=== PATIENT | female | born 1925 | race Caucasian/White ===

== ENCOUNTER 2016-08-05 19:23 | Observation (INO) | payer MEDICARE, OTHER ==
[~2016-08-05 19:23] MED LIST: ALBU17I INH; AMLO5TAB22 PO; CENTTAB9; DYAZ37.52 PO; EZET10; LEVO.025 PO; LOSA25 PO; METO50TA PO; PRED10PA PO; VITA400C28; VITA500T10; Z.0.OXYGEN INH
[2016-08-05 19:29] VITALS: BP 122/61; PULSE 138; RESP 22; TEMP 98.2; O2SAT 91
--- NOTE | 2016-08-05 19:36 | PD ---
Physical Exam Time Seen by Provider: 19:33 Narrative 89yo F c/o having feelings of "fading out." Reports sore throat and SOB. Denies chest pain, fever. Patient seen in triage. VS reviewed. Patient taken to medical bed. Data Data Last Documented VS Vital Signs Date Time Temp Pulse Resp B/P Pulse Ox O2 Delivery O2 Flow Rate FiO2 08/05/16 19:29 98.2 138 22 122/61 91 Room Air MDM Supervised Visit with VALERIA: Yoko Duvall Aug 05, 2016 19:36
[2016-08-05] MEDS ORDERED: LOSA50TA PO (19:54)
[2016-08-05] MEDS ORDERED: HYDR25TA5 PO (19:54)
[2016-08-05] MEDS ORDERED: METO50TA PO (19:54)
[2016-08-05] MEDS ORDERED: AMLO5TAB2 PO (19:54)
[2016-08-05] MEDS ORDERED: ALBU0.63 NEB (19:54)
[2016-08-05] MEDS ORDERED: RESP: ALBUTEROL 2.5 MG/IPRATROPIUM 0.5 MG NEB (SCH) INH (20:00)
[2016-08-05] MEDS ORDERED: methylPREDNISolone SOD SUCC 125 MG/2 ML VIAL IVP ONE (20:00)
[2016-08-05] MEDS ORDERED: SODIUM CHLORIDE 0.9% FLUSH 10 ML FLUSH IVF PRN (20:00)
--- NOTE | 2016-08-05 20:09 | PD ---
HPI Chief Complaint: Respiratory Symptoms Time Seen by Provider: 19:46 Travel History International Travel<30 days: No Contact w/Intl Traveler<30days: No Traveled to known affect area: No History of Present Illness HPI 89yo F with PMH of COPD on home O2 presents to the ED with c/o episodes of feeling like she is going to pass out today. States it happens after walking and gets better after sitting down. Pt denies any dizziness. Also with left sided chest pain 2-3 hours prior to arrival. States it was pressure like and associated with sob. Pt does not feel sob sitting down. States she has sob after walking a few blocks. +Cough. She currently denies any fever, n/v, abdominal pain, focal weakness or numbness. Denies any fall. Pt's clinical research manager is Dr. Cole and states she had normal echo a few weeks ago but has not had any stress test recently. Former smoker. 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) Cardiovascular Problems: Yes High Cholesterol: Yes Chemotherapy: Yes Endocrine: No Gastrointestinal Disorders: No Genitourinary: No Hypertension: Yes Immune Disorder: No Neurologic: No Psychiatric: No Respiratory: Yes (COPD) Radiation Therapy: No ?: Not Past Surgical History Abdominal Surgery: Yes Appendectomy: Yes (AGE 20S) Cardiac Surgery: Yes (cardiac cath ) Cholecystectomy: Yes Eye Surgery: Yes Gynecologic Surgery: Yes Hysterectomy: Yes Oral Surgery: Yes Tonsillectomy: Yes (AGE 17) Other Surgery: Yes (BILATERAL MASTOIDS TOTAL OF 5 SURGERIES) Social History Alcohol Use: Yes (OCCASIONAL/ 1 DRINK PER NIGHT BEFORE BED) Tobacco Use: No (QUIT 8 1/2 YEARS AGO) Substance Use: No Allergies-Medications (Allergen,Severity, Reaction): Coded Allergies: HMG-CoA Reductase Inhibitors (Verified Adverse Reaction, Unknown, 08/05/16) Reported Meds & Prescriptions Reported Meds & Active Scripts Active Reported Albuterol Neb (Albuterol Sulfate) 0.63 Mg/3 Ml Neb 0.63 Mg NEB Q6HR NEB PRN Amlodipine (Amlodipine Besylate) 5 Mg Tab 5 Mg PO BID Losartan (Losartan Potassium) 50 Mg Tab 50 Mg PO BID Metoprolol Tartrate 50 Mg Tab 50 Mg PO BID Hydrochlorothiazide 25 Mg Tab 25 Mg PO DAILY Review of Systems Except as stated in HPI: all other systems reviewed are Neg Physical Exam Narrative GENERAL: 89yo F not in distress. SKIN: Focused skin assessment warm/dry. HEAD: Atraumatic. Normocephalic. EYES: Pupils equal and round. No scleral icterus. No injection or drainage. ENT: Throat clear. Uvula midline. No erythema or exudate. NECK: Trachea midline. No JVD. CARDIOVASCULAR: Regular rate and rhythm. No murmur appreciated. RESPIRATORY: No accessory muscle use. Slight bibasilar crackles. Saturating at 98% on 2L NC and 95% on RA. GASTROINTESTINAL: Abdomen soft, non-tender, nondistended. MUSCULOSKELETAL: No obvious deformities. No clubbing. No cyanosis. +Bilateral lower ext edema. NEUROLOGICAL: Awake and alert. No obvious cranial nerve deficits. Motor grossly within normal limits. Normal speech. PSYCHIATRIC: Appropriate mood and affect; insight and judgment normal. Data Data Last Documented VS Vital Signs Date Time Temp Pulse Resp B/P Pulse Ox O2 Delivery O2 Flow Rate FiO2 08/05/16 21:56 98 Nasal Cannula 2 08/05/16 21:56 78 22 142/67 76 24 135/63 78 24 137/63 08/05/16 19:29 98.2 Orders Complete Blood Count With Diff (08/05/16 19:56) Basic Metabolic Panel (Bmp) (08/05/16 19:56) B-Type Natriuretic Peptide (08/05/16 19:56) Act Partial Throm Time (Ptt) (08/05/16 19:56) Prothrombin Time / Inr (Pt) (08/05/16 19:56) Ckmb (Isoenzyme) Profile (08/05/16 19:56) Troponin I (08/05/16 19:56) Iv Access Insert/Monitor (08/05/16 19:56) Ecg Monitoring (08/05/16 19:56) Oximetry (08/05/16 19:56) Oxygen Administration (08/05/16 19:56) Chest, Single Ap (08/05/16 19:56) Sodium Chloride 0.9% Flush (Ns Flush) (08/05/16 20:00) Methylprednisolone So Succ Inj (Solumedr (08/05/16 20:00) Albuterol-Ipratropium Neb (Duoneb Neb) (08/05/16 20:00) Orthostatic Vital Signs (08/05/16 21:24) Potassium Chloride (Kcl) (08/05/16 21:30) Urinalysis - C+S If Indicated (08/05/16 21:25) Electrocardiogram (08/05/16 19:42) Admit Order (Ed Use Only) (08/05/16 22:20) Activity Bed Rest With Brp (08/05/16 22:21) Vital Signs (Adult) Q4H (08/05/16 22:21) Cardiac Rhythm .As Directed (08/05/16 22:21) Notify Dr: Other .PRN (08/05/16 22:21) Notify Dr. Parameters (08/05/16:21) Resp Oxygen Nasal Cannula (08/05/16 ) Ckmb (Isoenzyme) Profile (08/05/16 22:21) Ckmb (Isoenzyme) Profile (08/06/16 01:21) Troponin I (08/05/16:21) Troponin I (08/06/16 01:21) Electrocardiogram (08/05/16 22:21) Electrocardiogram (08/06/16 01:21) ^ Obtain (08/05/16 22:21) Fig Washer / Telemetry GÉNESIS.Q8H (08/05/16 22:21) Labs Laboratory Tests Test 08/05/16 20:02 White Blood Count 11.0 TH/MM3 Red Blood Count 4.08 MIL/MM3 Hemoglobin 13.2 GM/DL Hematocrit 39.0 % Mean Corpuscular Volume 95.5 FL Mean Corpuscular Hemoglobin 32.4 PG Mean Corpuscular Hemoglobin 33.9 % Concent Red Cell Distribution Width 13.2 % Platelet Count 200 TH/MM3 Mean Platelet Volume 9.1 FL Neutrophils (%) (Auto) 75.2 % Lymphocytes (%) (Auto) 10.3 % Monocytes (%) (Auto) 13.9 % Eosinophils (%) (Auto) 0.3 % Basophils (%) (Auto) 0.3 % Neutrophils # (Auto) 8.3 TH/MM3 Lymphocytes # (Auto) 1.1 TH/MM3 Monocytes # (Auto) 1.5 TH/MM3 Eosinophils # (Auto) 0.0 TH/MM3 Basophils # (Auto) 0.0 TH/MM3 CBC Comment DIFF FINAL Differential Comment Prothrombin Time 10.5 SEC Prothromb Time International 1.0 RATIO Ratio Activated Partial 27.0 SEC Thromboplast Time Sodium Level 139 MEQ/L Potassium Level 3.2 MEQ/L Chloride Level 103 MEQ/L Carbon Dioxide Level 28.0 MEQ/L Anion Gap 8 MEQ/L Blood Urea Nitrogen 12 MG/DL Creatinine 1.24 MG/DL Estimat Glomerular Filtration 41 ML/MIN Rate Random Glucose 152 MG/DL Calcium Level 8.2 MG/DL Total Creatine Kinase 45 U/L Troponin I LESS THAN 0.02 NG/ML B-Type Natriuretic Peptide 313 PG/ML [facility] Medical Decision Making Medical Screen Exam Complete: Yes Emergency Medical Condition: Yes Interpretation(s) EKG: NSR 80bpm. PACs. Normal axis. Poor baseline. Differential Diagnosis CHF exacerbation vs. ACS vs. Pneumonia vs. aortic insufficiency Narrative Course 89yo F with c/o near syncope and chest pain. Pt states she has had recent US carotid and echo [address] Cole that is normal. Labs reviewed , no leukocytosis. Troponin negative. BNP 313. Creatinine mildly elevated at 1.24. K: 3.2, replaced orally. Orthostatic negative. CXR showed scarring with no acute cardiopulmonary disease. Pt has been ambulating in the ED without feeling like she is going to pass out and denies any dizziness or sob. Pt did have chest pain that is pressure like and concerning for ACS. First enzyme is negative but would admit to chest pain center for serial EKG and cardiac enzyme. Pt given aspirin 325mg PO. Diagnosis Primary Impression: Chest pain Qualified Code: R07.9 - Chest pain, unspecified type Admitting Information Admitting Physician Requests: Julissa Martino DO Aug 05, 2016 20:09
[2016-08-05 20:26] LABS: AUTOMATED NEUTROPHIL # 8.3 TH/MM3 (1.8-7.7); BASOPHIL % 0.3 % (0.0-2.0); EOSINOPHIL % 0.3 % (0.0-4.0); HEMO FLAGS DIFF FINAL; LYMPH % 10.3 % (9.0-44.0); LYMPHOCYTE # 1.1 TH/MM3 (1.0-4.8); MEAN CELL VOLUME 95.5 FL (80.0-100.0); MEAN CORPUSCULAR HEMOGLOBIN 32.4 PG (27.0-34.0); MEAN CORPUSCULAR HGB CONC 33.9 % (32.0-36.0); MONO % 13.9 % (0.0-8.0); NEUT % 75.2 % (16.0-70.0); PLATELET COUNT 200 TH/MM3 (150-450); RED BLOOD COUNT 4.08 MIL/MM3 (4.00-5.30); RED CELL DISTRIBUTION WIDTH 13.2 % (11.6-17.2)
[2016-08-05 20:29] LABS: PROTHROMBIN TIME - PATIENT 10.5 SEC (9.8-11.6)
--- NOTE | 2016-08-05 20:39 | RADRPT ---
EXAM DATE/TIME: 08/05/2016 20:20 [facility] COMPARISON: CHEST SINGLE AP, July 30, 2015, 5:33. INDICATIONS : Patient felt like she was going to pass out throughout the day. She has been short of breath and had a productive cough. MEDICAL HISTORY : None. SURGICAL HISTORY : Coronary artery stent. ENCOUNTER: Initial ACUITY: 1 day PAIN SCORE: 0/10 LOCATION: Bilateral chest FINDINGS: A single view of the chest demonstrates the lungs to be symmetrically aerated without evidence of mas s, infiltrate or effusion. There is mild stable scarring. The cardiomediastinal contours are unremark able. Osseous structures are intact. Mild atherosclerotic changes are again noted in the aorta. CONCLUSION: Scarring with no acute cardiopulmonary disease. There is no evidence of pneumonia. Chandana Lares MD on August 05, 2016 at 20:36 Board Certified Radiologist. This report was verified electronically.
[2016-08-05 20:47] LABS: ANION GAP 8 MEQ/L (5-15); BLOOD UREA NITROGEN 12 MG/DL (7-18); CHLORIDE 103 MEQ/L (98-107); GLOMERULAR FILTRATION RATE 41 ML/MIN (>89); POTASSIUM 3.2 MEQ/L (3.5-5.1); SODIUM (NA) 139 MEQ/L (136-145)
[2016-08-05 20:57] LABS: CREATINE KINASE 45 U/L (26-192)
[2016-08-05] MEDS ORDERED: POTASSIUM CHLORIDE 20 MEQ CONTROLLED RELEASE TAB PO ONE (21:30)
[2016-08-05 21:56] VITALS: BP_SYST 135; BP_SYST 137; BP_SYST 142; BP_DIAS 63; BP_DIAS 67; RESP 22; RESP 24
[2016-08-05 22:24] VITALS: O2SAT 98
[2016-08-05] MEDS ORDERED: ASPIRIN 325 MG TAB PO ONE (22:30)
[2016-08-05 22:50] VITALS: BP 134/68; PULSE 88; RESP 20; O2SAT 96
[2016-08-05 23:22] LABS: CREATINE KINASE 41 U/L (26-192)
[2016-08-06 00:46] VITALS: BP 139/64; PULSE 70; RESP 20; TEMP 98.1; O2SAT 97
[2016-08-06 04:03] LABS: CREATINE KINASE 41 U/L (26-192)
[2016-08-06 04:48] VITALS: BP 136/60; PULSE 63; RESP 20; TEMP 97.7; O2SAT 98
[2016-08-06 07:15] VITALS: PULSE 65
[2016-08-06 07:25] VITALS: BP 156/72; PULSE 68; RESP 17; TEMP 98.2; O2SAT 92
[2016-08-06] MEDS ORDERED: RESP: ALBUTEROL 2.5 MG/IPRATROPIUM 0.5 MG NEB (SCH) INH ONE (08:30)
[2016-08-06] MEDS ORDERED: RESP: ALBUTEROL 2.5 MG/IPRATROPIUM 0.5 MG NEB (PRN) INH (08:30)
[2016-08-06] MEDS ORDERED: methylPREDNISolone SOD SUCC 125 MG/2 ML VIAL IV PUSH ONE (08:30)
[2016-08-06 08:36] VITALS: O2SAT 97
[2016-08-06 08:42] VITALS: O2SAT 96
[2016-08-06] MEDS ORDERED: MEDR4PAK PO (09:43)
--- NOTE | 2016-08-06 09:44 | HHI.DCPOC ---
Discharge Care Plan Diagnosis: (1) COPD exacerbation (2) Chest pain (3) Hypertension (4) Hyperlipidemia Goals to Promote Your Health * To prevent worsening of your condition and complications * To maintain your health at the optimal level Directions to Meet Your Goals Take your medications as prescribed Follow your dietary instruction Follow activity as directed Keep your appointments as scheduled Take your immunizations and boosters as scheduled If your symptoms worsen call your PCP, if no PCP go to Urgent Care Center or Emergency Room Smoking is Dangerous to Your Health. Avoid second hand smoke Call the 24-hour hour crisis hotline for domestic abuse at Eleazar Donovan Aug 06, 2016 09:44
--- NOTE | 2016-08-06 11:33 | HHI.HP ---
[facility] Primary Care Physician Russ Del Real M.D. Chief Complaint Shortness of breath History of Present Illness This is an 89-year-old female that presents to ED with a complaint of feeling weak and short of breath. States she has history of COPD and uses oxygen at home. She states that yesterday she felt very weak as if she could have passed out. Denies syncope. She was short of breath which she also states that terribly uncommon but seemed be worse. She also had a tightness in her chest which she states she also gets at times. She follows Dr. Wallace for pulmonary issues and Dr. Mitchell for potential cardiac issues. She states she feels a lot better after getting medication in the emergency department. Upon reviewing records she was given IV Solu-Medrol and breathing treatments. 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 Review of Systems General: Patient denies fevers, chills recent, and recent travel HEENT: Patient denies headache, sore throat, difficulty swallowing. Cardiovascular: Has the chest discomfort as mentioned above. Denies sensation of heart beating rapidly or irregularly. No syncope. Denies diaphoresis. Respiratory: She is chronically short of breath however seem to be worse. Denies inspirational chest discomfort. Denies coughing wheezing or hemoptysis. GI: Patient denies nausea, vomiting, diarrhea, abdominal pain, bloody stools. Musculoskeletal: Patient denies joint pain or edema. Denies calf pain or edema. Neurovascular: Patient denies numbness, tingling, weakness in extremities. Denies headache. Endocrine: Denies polyuria and polydipsia. Hematologic: Denies easy bruising. Skin: Denies rash or itching. Past Family Social History Allergies: Coded Allergies: HMG-CoA Reductase Inhibitors (Verified Adverse Reaction, Unknown, 08/05/16) Past Medical History COPD hypertension. Denies hyperlipidemia and diabetes. Denies known CAD. Past Surgical History Cardiac catheterization without intervention in 2006. Tonsillectomy. She has had 5 mastoid surgeries. Appendectomy, cholecystectomy, and hysterectomy. Reported Medications Reported Meds & Active Scripts Active Medrol Dosepak (Methylprednisolone) 4 Mg Dspk 4 Mg PO DIRECTED Per Pharmacist direction Reported Albuterol Neb (Albuterol Sulfate) 0.63 Mg/3 Ml Neb 0.63 Mg NEB Q6HR NEB PRN Amlodipine (Amlodipine Besylate) 5 Mg Tab 5 Mg PO BID Losartan (Losartan Potassium) 50 Mg Tab 50 Mg PO BID Metoprolol Tartrate 50 Mg Tab 50 Mg PO BID Hydrochlorothiazide 25 Mg Tab 25 Mg PO DAILY Family History She is not aware her family history. Social History She does not smoke, drink alcohol, or use illicit drugs. Physical Exam Vital Signs Vital Signs Date Time Temp Pulse Resp B/P Pulse Ox O2 Delivery O2 Flow Rate FiO2 08/06/16 08:42 96 Nasal Cannula 2.00 08/06/16 08:36 97 Nasal Cannula 2.00 08/06/16 08:00 91 Room Air 08/06/16 07:25 98.2 68 17 156/72 92 08/06/16 07:15 65 08/06/16 04:48 97.7 63 20 136/60 98 08/06/16 00:46 98.1 70 20 139/64 97 08/06/16 00:29 96 2.00 08/05/16 22:50 88 20 134/68 96 Nasal Cannula 2 08/05/16 22:24 98 Nasal Cannula 2.00 08/05/16 21:56 98 Nasal Cannula 2 08/05/16 21:56 78 22 142/67 76 24 135/63 78 24 137/63 08/05/16 19:45 75 08/05/16 19:29 98.2 138 22 122/61 91 Room Air Physical Exam GENERAL: This is a well-nourished, well-developed patient, in no apparent distress. Patient speaks in clear complete sentences. Patient is pleasant. HEENT: Head is atraumatic and normocephalic. Neck is supple without lymphadenopathy and trachea is midline. No JVD or carotid bruits. CARDIOVASCULAR: Regular rate and rhythm without murmurs, gallops, or rubs. RESPIRATORY: Clear to auscultation. There are decreased breath sounds bilateral bases. No wheezing rales or rhonchi. No use of accessory muscles. GASTROINTESTINAL: Abdomen is nontender, nondistended. Abdomen soft. No obvious pulsatile mass or bruit. No CVA tenderness. Strong femoral pulses bilaterally. Normal bowel sounds in all quadrants. MUSCULOSKELETAL: Patient is moving upper and lower extremities freely. No calf tenderness or edema, no Homans sign. Strong pulses in upper and lower extremities. NEUROLOGICAL: Patient is alert and oriented. Cranial nerves 2-12 are grossly intact. No focal deficits and speech is clear. SKIN: No rash and turgor is normal. Laboratory Laboratory Tests Test 08/05/16 08/05/16 08/06/16 20:02 22:33 03:00 White Blood Count 11.0 Red Blood Count 4.08 Hemoglobin 13.2 Hematocrit 39.0 Mean Corpuscular Volume 95.5 Mean Corpuscular Hemoglobin 32.4 Mean Corpuscular Hemoglobin 33.9 Concent Red Cell Distribution Width 13.2 Platelet Count 200 Mean Platelet Volume 9.1 Neutrophils (%) (Auto) 75.2 Lymphocytes (%) (Auto) 10.3 Monocytes (%) (Auto) 13.9 Eosinophils (%) (Auto) 0.3 Basophils (%) (Auto) 0.3 Neutrophils # (Auto) 8.3 Lymphocytes # (Auto) 1.1 Monocytes # (Auto) 1.5 Eosinophils # (Auto) 0.0 Basophils # (Auto) 0.0 CBC Comment DIFF FINAL Differential Comment Prothrombin Time 10.5 Prothromb Time International 1.0 Ratio Activated Partial 27.0 Thromboplast Time Sodium Level 139 Potassium Level 3.2 Chloride Level 103 Carbon Dioxide Level 28.0 Anion Gap 8 Blood Urea Nitrogen 12 Creatinine 1.24 Estimat Glomerular Filtration 41 Rate Random Glucose 152 Calcium Level 8.2 Total Creatine Kinase 45 41 41 Troponin I LESS THAN 0.02 LESS THAN 0.02 LESS THAN 0.02 B-Type Natriuretic Peptide 313 Result Diagram: 08/05/16200108/05/162001 Imaging Last 48 hours Impressions Chest X-Ray 08/05/161955 Signed Impressions: Service Date/Time: Friday, August 05, 2016 20:20 - CONCLUSION: Scarring with no acute cardiopulmonary disease. There is no evidence of pneumonia. Chandana Lares MD Course EKGs have sinus rhythm without significant ST segment depressions or elevations. Assessment and Plan Assessment and Plan * COPD exacerbation: Patient will continue her medication at home. She was given duo nebs here. She is feeling better. She'll be given a prescription of Medrol Dosepak and discharged home with instructions to follow-up with her project hire. I called her project hire office and have scheduled her an appointment August 10 for 10:00 in the morning. This information was relayed to the patient. She should also follow-up with her primary care physician. * Chest pain: Patient has had serial cardiac enzymes and EKGs for ruling out purposes. Her symptoms appear to be more related to her her lungs. She was seen by Dr. Julien of cardiology in the chest pain center. Patient does not want to have any stress testing obtain at this time. She'll be discharged home with instructions to follow-up with her primary care physician and her operations intelligence. * Hypertension: Continue current medication. * Hypokalemia: Patient was given potassium supplementation. Patient is stable at this time. She is agreeable to this plan. Eleazar Donovan Aug 06, 2016 11:33
--- NOTE | 2016-08-06 17:00 | EKG ---
Date Performed: 08/05/2016 Time Performed: 22:40:35 PTAGE: 89 years EKG: Sinus rhythm NORMAL ECG Since PREVIOUS TRACING , no significant change noted PREVIOUS TRACIN08/05/2016 19.42 DOCTOR: Cristy Julien Interpretating Date/Time 08/06/2016 17:00:05
--- NOTE | 2016-08-06 17:01 | EKG ---
Date Performed: 08/06/2016 Time Performed: 02:02:03 PTAGE: 89 years EKG: Sinus rhythm MODERATE INTRAVENTRICULAR CONDUCTION DELAY BORDERLINE ECG Since PREVIOUS TRACING , no significant change noted PREVIOUS TRACIN08/05/2016 22.40 DOCTOR: Cristy Julien Interpretating Date/Time 08/06/2016 17:00:48
--- NOTE | 2016-08-06 17:06 | EKG ---
Date Performed: 08/05/2016 Time Performed: 19:42:06 PTAGE: 89 years EKG: Sinus rhythm WITH OCCASIONAL ECTOPIC PREMATURE COMPLEXES BORDERLINE ECG Since PREVIOUS TRACING , no significant change noted PREVIOUS TRACIN07/27/2015 12.19 DOCTOR: Cristy Julien Interpretating Date/Time 08/06/2016 17:05:37
[2016-08-07] MEDS ORDERED: PNEUMOCOCCAL POLYVALENT INJ 25 MCG/0.5 ML SYR IM ONE (10:00)
== END 2016-08-06 10:51 | disposition home or self-care (01) ==
LOC: NEPC 19:23 → NEDA 22:22 → NEPGCP 23:59
PROVIDERS: ADMIT Internal Medicine Interventional Cardiology; ATTEND Internal Medicine Interventional Cardiology
DX: J44.1 Chronic obstructive pulmonary disease with (acute) exacerbation (principal); R07.89 Other chest pain; I10 Essential (primary) hypertension; E87.6 Hypokalemia; M19.90 Unspecified osteoarthritis, unspecified site; Z85.828 Personal history of other malignant neoplasm of skin; Z92.21 Personal history of antineoplastic chemotherapy; Z87.891 Personal history of nicotine dependence; Z88.8 Allergy status to other drugs, medicaments and biological substances; Z99.81 Dependence on supplemental oxygen
CPT/HCPCS: 71010; 80048; 82550; 83880; 84484; 85025; 85610; 85730; 93005; 94664; 99285; G0378; J2930